=== PATIENT | male | born 1935 | race Caucasian/White ===

== ENCOUNTER → 2017-04-06 | Outpatient (CLI) | payer OTHER | LOC: MMPC 11:11 | PROVIDERS: ATTEND Internal Medicine | DX: I10 Essential (primary) hypertension (principal); R31.9 Hematuria, unspecified; E03.9 Hypothyroidism, unspecified; F17.209 Nicotine dependence, unspecified, with unspecified nicotine-induced disorders; M81.0 Age-related osteoporosis without current pathological fracture | CPT/HCPCS: 99214; G0463 ==

== ENCOUNTER → 2017-04-10 | Outpatient (CLI) | payer OTHER ==
--- NOTE | 2017-04-10 10:59 | DI ---
CT CHEST W/O CONTRAST,04/10/2017 8:54 AM: Clinical History: History of nicotine dependence. Previous Exam: None at this facility. Findings: Multiple helically acquired CT images are obtained through the chest without contrast. Degenerative changes of the spine are noted. There are mild diffuse emphysematous changes seen. There is a calcified area of pleural thickening wi thin the left anterior chest wall. There is no infiltrate nor effusion. There is a small calcified granuloma within the right lung base. Visualized portions of the upper abdomen demonstrates severe left hydronephrosis with severe cortical thinning. Skeletal structures are unremarkable. Impression: 1. Mild emphysematous changes. 2. No evidence of malignancy. 3. Massive left renal hydronephrosis with resulting left renal cortical thinning.
== END ==
LOC: CT 08:46
PROVIDERS: ATTEND Internal Medicine
DX: R09.89 Other specified symptoms and signs involving the circulatory and respiratory systems (principal); F17.209 Nicotine dependence, unspecified, with unspecified nicotine-induced disorders
CPT/HCPCS: 71250

== ENCOUNTER → 2017-04-14 | Outpatient (CLI) | payer OTHER ==
[2017-04-14 07:48] LABS: BUN/CREATININE RATIO 11.66 (6-20); CALCIUM 9.6 mg/dL (8.7-10.7)
== END ==
LOC: LAB 06:57
PROVIDERS: ATTEND Internal Medicine
DX: E78.5 Hyperlipidemia, unspecified (principal); L57.0 Actinic keratosis; I25.10 Atherosclerotic heart disease of native coronary artery without angina pectoris; N13.30 Unspecified hydronephrosis
CPT/HCPCS: 36415; 80048

== ENCOUNTER → 2017-04-14 | Outpatient (CLI) | payer OTHER ==
--- NOTE | 2017-04-14 23:20 | DI ---
CT ABD W/WO CN AND PELVIS W/W0,04/14/2017 12:54 PM: Clinical History: Left-sided hydronephrosis. Previous Exam: CT bone density performed 06/19/15 Findings: Multiple helically acquired CT images are obtained through the abdomen and pelvis both before and aft er the intravenous administration of contrast. There is massive left-sided hydronephrosis with near complete cortical destruction of the left kidney . There is normal excretion of the right kidney. The right ureter demonstrates normal course and calibe r with orthotopic insertion on the urinary bladder which is partially decompressed. Diffuse degenerative change the spine are noted. Peripheral vascular calcifications are seen. Is a si mple renal cyst involving the interpolar right kidney. There is also a subcentimeter hypodensity within the interpolar right kidney too small to characteriz e. Moderate stool is seen throughout the colon. Peripheral vascular calcifications are seen. Diffuse degenerative changes of the hips are noted. The lung bases are clear. Multiple colonic diverticula are noted without evidence of acute diverticulitis. Impression: 1. Massive left hydronephrosis with cortical destruction. 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
== END ==
LOC: CT 12:52
PROVIDERS: ATTEND Internal Medicine
DX: N13.30 Unspecified hydronephrosis (principal); E78.5 Hyperlipidemia, unspecified; L57.0 Actinic keratosis; I25.10 Atherosclerotic heart disease of native coronary artery without angina pectoris
CPT/HCPCS: 36415; 74178; 80048